=== PATIENT | female | born 1980 | race Caucasian/White ===

== ENCOUNTER 2016-12-24 09:45 | Emergency (ER) | payer OTHER ==
[~2016-12-24] VITALS: Ht 165.1 cm; Wt 65.9 kg
[~2016-12-24 09:45] MED LIST: Ibuprofen PO; PRE20 PO
[2016-12-24 09:50] VITALS: BP 137/90; PULSE 80; RESP 16; O2SAT 97
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
[2016-12-24] MEDS ORDERED: Tissue Adhesive Liq (CS Supplied) TOPICAL ONE (11:00)
[2016-12-24] MEDS ORDERED: HYDROcodone-APAP 5-325 mg Tablet PO ONE (11:15)
[2016-12-24 11:21] VITALS: BP 121/66; PULSE 72; RESP 16; O2SAT 98
== END 2016-12-24 11:23 | disposition home or self-care (01) ==
LOC: SED 09:45
DX: S61.012A Laceration without foreign body of left thumb without damage to nail, initial encounter (principal); W26.0XXA Contact with knife, initial encounter; Y93.G1 Activity, food preparation and clean up; Y92.9 Unspecified place or not applicable; Y99.9 Unspecified external cause status; Z91.018 Allergy to other foods; Z91.040 Latex allergy status; Z88.2 Allergy status to sulfonamides